=== PATIENT | male | born 1975 | race Caucasian/White ===

== ENCOUNTER 2019-10-22 17:09 | Emergency (ER) | payer BC ==
[2019-10-22 17:20] VITALS: PULSE 84
--- NOTE | 2019-10-22 17:45 | EDM.PDOC ---
ED HPI GENERAL MEDICAL PROBLEM - General Chief Complaint: Chest Pain Stated Complaint: DIARRHEA/HIGH BP/TIGHTNESS IN CHEST Time Seen by Provider: 10/22/19 17:36 Source of Information: Reports: Patient History Limitations: Reports: No Limitations - History of Present Illness INITIAL COMMENTS - FREE TEXT/NARRATIVE: 44-year-old male presents to the ED complaining of some central chest discomfort but he will call it pain or pressure. No heartburn or indigestion. He reports that he has been coughing more continuously or regularly the last for 5 days. He is a smoker. Coughing up some gross sputum he states. He is developed diffuse lower abdominal discomfort associate with diarrhea for about 3 and half to 4 days. This may have occurred after eating out at [employer] on Friday. Stools are large volume yellow fluid. He is gone 3 times so far today. No blood. No nausea or vomiting or heartburn. Feels mildly lightheaded and dizzy. No fever or chills. His blood pressure was found to be markedly elevated at the clinic and he was sent to the ED for evaluation although he has no history of hypertension. Onset: Gradual Onset Date: 10/19/19 (Developed diarrhea afternoon of October 18. Exactly sure when you appreciated increased chest discomfort. Appreciated increased coughing the last 3 days.) Duration: Day(s):, Getting Worse Location: Reports: Chest (Chest discomfort), Abdomen (Intermittent lower abdominal discomfort with diarrhea up to 3 times daily) Quality: Reports: Other Severity: Mild (Chest discomfort but he will not call it a pressure or an ache.) Improves with: Reports: None Worsens with: Reports: None Context: Denies: Activity, Exercise, Lifting, Sick Contact, Trauma, Other Associated Symptoms: Reports: Cough, cough w sputum (Sputum is quite gross and), Loss of Appetite, Malaise (Potatoes not been all aggravate the last couple of days.), Other (Area of the last 3 and half days.). 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) Left Chest Pain Score (Numeric/FACES): 3 - Related Data Allergies Allergy/AdvReac Type Severity Reaction Status Date / Time tetanus toxoid, adsorbed Allergy Severe Fatigue Verified 10/22/19 17:20 Home Meds: Home Meds Dicyclomine [Bentyl] 20 mg PO Q6H PRN #8 tablet 10/22/19 [Rx] amLODIPine Besylate [Norvasc] 5 mg PO DAILY #30 tablet 10/22/19 [Rx] Past Medical History Musculoskeletal History: Reports: Fracture Other Musculoskeletal History: bilateral metatarsels, ankle - Past Surgical History GI Surgical History: Reports: Appendectomy Neurological Surgical History: Reports: Lumbar Spine Musculoskeletal Surgical History: Reports: None Social & Family History - Family History Family Medical History: Noncontributory - Tobacco Use Smoking Status *Q: Current Every Day Smoker Years of Tobacco use: 25 Packs/Tins Daily: 1 - Caffeine Use Caffeine Use: Reports: Coffee, Soda - Alcohol Use Alcohol Use History: Yes - Recreational Drug Use Recreational Drug Use: Yes Drug Use in Last 12 Months: No Recreational Drug Type: Reports: Cocaine, Marijuana/Hashish - Living Situation & Occupation Living situation: Reports: Single Occupation: Employed ED ROS GENERAL - Review of Systems Review Of Systems: See Below Constitutional: Reports: Malaise, Weakness, Fatigue, Decreased Appetite. Denies: Fever, Chills HEENT: Reports: No Symptoms Respiratory: Reports: Wheezing, Cough, Sputum (Says mild intermittent cough with gross tasting sputum.). Denies: Shortness of Breath, Pleuritic Chest Pain, Hemoptysis Cardiovascular: Reports: Chest Pain (Chest discomfort perhaps mild pressure.), Blood Pressure Problem (Pressure elevated at the clinic in 1 of the reason he was sent to the ED for further evaluation.). Denies: Claudication ( He has never been diagnosed with hypertension), Dyspnea on Exertion, Edema, Lightheadedness, Orthopnea, Palpitations Endocrine: Reports: Fatigue GI/Abdominal: Reports: Abdominal Pain (Lower abdominal discomfort), Diarrhea ( mild cramps explosive diarrhea usually yellow watery with high-volume fluid loss the last 3 to 4 days.), Decreased Appetite. Denies: Distension, Flatus, Hematemesis, Hematochezia, Melena, Nausea, Stool Incontinence, Vomiting : Reports: No Symptoms Musculoskeletal: Reports: No Symptoms Skin: Reports: No Symptoms Neurological: Reports: No Symptoms Psychiatric: Reports: No Symptoms Hematologic/Lymphatic: Reports: No Symptoms Immunologic: Reports: No Symptoms ED EXAM, GENERAL - Physical Exam Exam: See Below Exam Limited By: No Limitations General Appearance: Alert, WD/WN, Anxious, Mild Distress, Other (Temperature is 36.5 heart rate was 84 and sinus respiratory is 18 with O2 sats of 95 to 96% BP elevated 149 101.) Eye Exam: Bilateral Eye: Normal Inspection, PERRL Throat/Mouth: Other Head: Atraumatic, Normocephalic Neck: Normal Inspection, Supple, Non-Tender, Full Range of Motion. No: Lymphadenopathy (L), Lymphadenopathy (R) Respiratory/Chest: No Respiratory Distress, Rhonchi (Rhonchi appreciated right midlung anteriorly), Wheezing. No: Lungs Clear, Normal Breath Sounds (Charlene expiratory wheezes throughout all lung shell.), Chest Non-Tender, Crackles, Rales Cardiovascular: Normal Peripheral Pulses, Regular Rate, Rhythm, No Edema, No Gallop, No Murmur, No Rub Peripheral Pulses: 2+: Posterior Tibial (L), Posterior Tibial (R), Dorsalis Pedis (L), Dorsalis Pedis (R), 3+: Carotid (L), Carotid (R) GI/Abdominal: Normal Bowel Sounds, Soft, Non-Tender, No Organomegaly, No Abnormal Bruit, No Mass, Pelvis Stable, Other (Well-healed appendectomy scar right lower quadrant) Back Exam: Normal Inspection, Full Range of Motion. No: CVA Tenderness (L), CVA Tenderness (R) Extremities: Normal Inspection, Normal Range of Motion, Non-Tender Neurological: Alert, Oriented, CN II-XII Intact, Normal Cognition Psychiatric: Anxious Skin Exam: Warm (Steven anxious), Dry, Intact, Normal Color, No Rash EKG INTERPRETATION EKG Date: 10/22/19 Time: 17:31 Rhythm: NSR Rate (Beats/Min): 72 [place]: Normal P-Wave: Enlarged (Mildly enlarged left atrium.) QRS: Other (R wave transition V4. Consider septal hypertrophy pattern) ST-T: Normal QT: Normal EKG Interpretation Comments: Borderline ECG. Course - Vital Signs Last Recorded V/S: Last Vital Signs Temp 36.5 C 10/22/19 17:14 Pulse 84 10/22/19 17:14 Resp 18 10/22/19 17:14 BP 147/102 H 10/22/19 18:52 Pulse Ox 98 06/19/20 17:46 - Orders/Labs/Meds Labs: Laboratory Tests 10/22/19 10/22/19 Range/Units 17:41 17:41 WBC 7.02 (4.23-9.07) K/mm3 RBC 4.96 (4.63-6.08) M/mm3 Hgb 16.5 D (13.7-17.5) gm/dl Hct 48.0 (40.1-51.0) % MCV 96.8 H (79.0-92.2) fl MCH 33.3 H (25.7-32.2) pg MCHC 34.4 (32.2-35.5) g/dl RDW Std Deviation 46.7 H (35.1-43.9) fL Plt Count 208 (163-337) K/mm3 MPV 10.4 (9.4-12.3) fl Neut % (Auto) 59.7 (34.0-67.9) % Lymph % (Auto) 27.6 (21.8-53.1) % [place] % (Auto) 9.5 (5.3-12.2) % Eos % (Auto) 2.3 (0.8-7.0) Baso % (Auto) 0.6 (0.1-1.2) % Neut # (Auto) 4.19 (1.78-5.38) K/mm3 Lymph # (Auto) 1.94 (1.32-3.57) K/mm3 [place] # (Auto) 0.67 (0.30-0.82) K/mm3 Eos # (Auto) 0.16 (0.04-0.54) K/mm3 Baso # (Auto) 0.04 (0.01-0.08) K/mm3 Sodium 141 (136-145) mEq/L Potassium 3.7 (3.5-5.1) mEq/L Chloride 104 (98-107) mEq/L Carbon Dioxide 25 (21-32) mEq/L Anion Gap 15.7 H (5-15) BUN 13 (7-18) mg/dL Creatinine 1.0 (0.7-1.3) mg/dL Est Cr Clr Drug Dosing 101.31 mL/min Estimated GFR (MDRD) > 60 (>60) mL/min BUN/Creatinine Ratio 13.0 L (14-18) Glucose 96 (74-106) mg/dL Calcium 8.9 (8.5-10.1) mg/dL Magnesium 2.0 (1.8-2.4) mg/dl Total Bilirubin 0.3 (0.2-1.0) mg/dL AST 29 (15-37) U/L ALT 36 (16-63) U/L Alkaline Phosphatase 78 (46-116) U/L CK-MB (CK-2) 1.4 (0-3.6) ng/ml Troponin I < 0.017 (0.00-0.056) ng/mL C-Reactive Protein < 0.2 (<1.0) mg/dL Total Protein 6.9 (6.4-8.2) g/dl Albumin 3.5 (3.4-5.0) g/dl Globulin 3.4 gm/dL Albumin/Globulin Ratio 1.0 (1-2) Meds: Medications Discontinued Medications Generic Name Dose Route Start Last Admin Trade Name Freq PRN Reason Stop Dose Admin Albuterol/Ipratropium 3 ml 10/22/19 17:46 10/22/19 18:12 Duoneb 3.0-0.5 Mg/3 Ml NEB 3 ml Q4H PRN Administration Shortness Of Breath/wheezing Enalaprilat 1.25 mg 10/22/19 18:48 10/22/19 18:52 Vasotec Iv IVPUSH 10/22/19 18:49 1.25 mg ONETIME ONE Administration Dextrose/Sodium Chloride 1,000 mls @ 999 mls/hr 10/22/19 18:00 10/22/19 17:55 Dextrose 5%-Normal Saline IV 999 mls/hr ASDIRECTED [facility] Administration - Radiology Interpretation Free Text/Narrative:: 44-year-old male presents the ED with central chest discomfort elevated blood pressure at the clinic today. History of diarrhea loose yellow watery high- volume stool loss up to 3 or 4 times a day for the last 3 to 4 days. Did not eat much the last couple of days. Drink fair amount of alcohol yesterday. Pe rhaps also smoked more than normal. Feels dehydrated. ECG done reveals sinus rhythm at 72/min with no signs of ischemia. He is wheezing bilaterally but he is a smoker. Plan DuoNeb now. Will have 1 view chest x-ray performed. Routine labs. IV will be D5LR at open. - Re-Assessments/Exams Free Text/Narrative Re-Assessment/Exam: 10/22/19 18:21 Labs reveal a normal white count at 7.02. Auto differential shows 80% neutrophils. Hemoglobin is 16.5 with hematocrit of 48.0 indicating mild hemoconcentration. MCV elevated 96.8 I suspect due to underlying alcohol use. Platelet count 208,000. Single view chest x-ray reveals. There is a bronchus in the right perihilar area that appears to have rhonchal cuffing. No signs of pneumonia evident. Pressure is 1 30-1 04. Sats are 96% heart rate 82. 10/22/19 18:37 Chemistry shows a sodium of 141 potassium 3.7. Chloride 104 with a bicarb of 25. Anion gap is slightly elevated at 15.7. BUN is 13 with a creatinine of 1.0. GFR is greater than 60. Glucose is 96. Calcium 8.9 magnesium 2.0 liver function normal. CK-MB fraction 1.4 troponin I less than 0.017. C-reactive protein less than 0.2. Total protein 6.9 albumin fraction 3.5. 10/22/19 18:46 Discussed the findings with the patient. There is no sign of heart related illness. Chest pain can be from coughing so much the last several days. He noticed really no improvement after DuoNeb treatment. Denies is that the sputum has been harder to get up because it is thick and stickier.. Blood pressure remains elevated it is almost always above 146 systolic and 106 diastolic. I am therefore going to give him Vasotec 1.25 mg IV now and plan will be to start him on Norvasc 5 mg once daily. I will give him enough for a month and then have him check with his personal care physician. Be primarily clear fluids for the next day or so Gatorade/Powerade, Jell-O, jam on white bread, soup broth etc. until diarrhea settles down. Avoid all dairy products and no apple or grape juice until stools are formed back up. Departure - Departure Time of Disposition: 18:47 Disposition: Home, Self-Care 01 Reason for Transfer *Q: Other Condition: Fair Clinical Impression: Viral gastroenteritis, Bronchitis, Non-cardiac chest pain, Elevated blood pressure reading Prescriptions: Dicyclomine [Bentyl] 20 mg PO Q6H PRN #8 tablet PRN Reason: Abdominal cramps/diarrhea amLODIPine Besylate [Norvasc] 5 mg PO DAILY #30 tablet Instructions: Viral Gastroenteritis, Adult, [id number], Nonspecific Chest Pain, Adult, [id number], Upper Respiratory Infection, Adult, [id number], Hypertension, Adult, [id number] Referrals: PCP,None [Primary Care Provider] - Forms: ED Department Discharge Additional Instructions: Evaluation in the emergency room today in regards to a combination of symptoms. Noted central chest discomfort off and on for the last 3 to 4 days. Heart tracing was completely normal with no signs of heart related illness. Chest x- ray was normal as well with no signs of pneumonia or enlarged heart. Lab tests also proved completely negative for any heart related illness. White cell count proved to be normal. It therefore appears that the current diarrhea problems are related to viral infection and simply have to run their course. Diet should be clear fluids such as Gatorade/Powerade ideally 6 ounces sipped per hour. Advance to a light diet such as turkey rice/chicken noodle soup etc. Avoid all dairy products and no apple or grape juice until stools are formed back up. Blood pressure readings while in the ED for an hour and a half were all elevated above normal. The top number was persistently higher than 145 with the average being around 150 and the bottom number was always over 100 with the lowest achieved of 101. Normal should be 80-85. You were therefore given a small dose of Vasotec 1.25 mg intravenously in the ED at the time of discharge to bring your blood pressure down. You will need to start a blood pressure medicine called amlodipine or Norvasc 5 mg once daily. Scripts were written for the next 2 months. At some point time such as 2 to 3 weeks you should follow-up with your personal care physician to have your blood pressure checked and make sure that it is coming under good control. Sepsis Event Note (ED) - Evaluation Sepsis Screening Result: No Definite Risk
[2019-10-22] MEDS ORDERED: Albuterol/Ipratropium 3.0-0.5 MG/3 ML Neb Soln NEB PRN (17:46)
[2019-10-22] MEDS ORDERED: Dextrose 5%-0.9% NaCl 1,000 ML IV SCH (18:00)
[2019-10-22] MEDS ORDERED: Enalaprilat 1.25 MG/ML SDV IVPUSH ONE (18:48)
[2019-10-22 18:53] VITALS: BP 147/102
--- NOTE | 2019-10-22 18:53 | CR ---
Chest: PA view of the chest was obtained. Comparison: No prior chest imaging is available. Heart size and mediastinum are normal. Lungs are clear with no acute parenchymal change. Minimal scoliosis is noted within the spine. Impression: 1. Minimal scoliosis. 2. Nothing acute is seen on PA chest x-ray. Diagnostic code #2 Study was dictated in MDT
== END 2019-10-22 19:10 | disposition home or self-care (01) ==
LOC: JD.ED 17:09
DX: J40 Bronchitis, not specified as acute or chronic (principal); A08.4 Viral intestinal infection, unspecified; R03.0 Elevated blood-pressure reading, without diagnosis of hypertension; F17.210 Nicotine dependence, cigarettes, uncomplicated; Z88.8 Allergy status to other drugs, medicaments and biological substances; Z79.899 Other long term (current) drug therapy
CPT/HCPCS: 36415; 71045; 80053; 82553; 83735; 84484; 85025; 86140; 94640; 96361; 96374; 99285; J7042; 93010; 99284; J7620-GY

== ENCOUNTER 2019-11-01 11:25 | Emergency (ER) | payer BC ==
[2019-11-01 11:42] VITALS: BP 135/95; PULSE 73
--- NOTE | 2019-11-01 12:43 | EDM.PDOC ---
ED HPI GENERAL MEDICAL PROBLEM - General Chief Complaint: Neurological Problem Stated Complaint: SHORT TERM MEMORY LOSS Time Seen by Provider: 11/01/19 12:24 Source of Information: Reports: Patient, Family (), RN Notes Reviewed History Limitations: Reports: No Limitations - History of Present Illness INITIAL COMMENTS - FREE TEXT/NARRATIVE: Patient is a 44-year-old male who presents to the ED for evaluation of his intermittent memory loss. Patient notes he has had 2 episodes of this, one roughly 1-1/2 months ago, and another episode today. is present in the room, and states that around 10:10 AM he called her work, and was asked why he was not at work, and wanted to know what he did this morning, and if he went anywhere. He was also asking his 7-year-old daughter the same questions. notes that this happened 1-1/2 months ago, but he was at work, he did not get evaluated at that time for these instances. states that the patient has been furloughed from work, due to coronavirus, for about 1 month now. Patient states that he feels better now, and is aware of what he was doing this morning, and is alert and oriented x3. He was recently seen in this ER roughly 1 week ago for elevated blood pressure readings, and was started on amlodipine. He states that he did not take this medication this morning, but has been faithful in taking it previous to this morning. Patient denies any herbal medications or [id number] medications, he states he felt mildly nauseated at the time, but is not having any nausea/vomiting/diarrhea, or any other sick-like symptoms fever/chills, cough/shortness of breath at the current time. The states she was assessing him when these instances happened, and she notes that he did not have any unilateral weakness, the patient himself states that he feels quite fatigued afterwards, and states all he wanted to do with sleep. He further denies any dizziness or headache. notes that he has been diagnosed with olfactory hallucinations, where he smells things that are not there, he states that after these episodes as well he feels fatigued. Patient notes that the only change in his daily routine, is slight increase in alcohol intake, where he drinks about every other day, this is an increase from about once or twice on the weekends when he was employed. - Related Data Allergies Allergy/AdvReac Type Severity Reaction Status Date / Time tetanus toxoid, adsorbed Allergy Severe Fatigue Verified 10/22/19 17:20 Home Meds: Home Meds Dicyclomine [Bentyl] 20 mg PO Q6H PRN #8 tablet 10/22/19 [Rx] amLODIPine Besylate [Norvasc] 5 mg PO DAILY #30 tablet 10/22/19 [Rx] Past Medical History HEENT History: Reports: Other (See Below) (olfactory hallucinations) Musculoskeletal History: Reports: Fracture Other Musculoskeletal History: bilateral metatarsals, ankle - Past Surgical History GI Surgical History: Reports: Appendectomy Neurological Surgical History: Reports: Lumbar Spine Social & Family History - Family History Family Medical History: Noncontributory - Tobacco Use Smoking Status *Q: Current Every Day Smoker Years of Tobacco use: 25 Packs/Tins Daily: 1 - Caffeine Use Caffeine Use: Reports: Coffee - Recreational Drug Use Recreational Drug Use: No - Living Situation & Occupation Living situation: Reports: Single Occupation: Employed ED ROS GENERAL - Review of Systems Review Of Systems: Comprehensive ROS is negative, except as noted in HPI. - Physical Exam Exam: See Below Exam Limited By: No Limitations General Appearance: Alert, WD/WN, No Apparent Distress Eye Exam: Bilateral Eye: EOMI, Normal Inspection, PERRL Throat/Mouth: Normal Inspection, Normal Lips, Normal Teeth, Normal Gums, Normal Oropharynx, Normal Voice, No Airway Compromise Head Exam: Atraumatic, Normocephalic Neck: Normal Inspection, Supple, Non-Tender, Full Range of Motion Respiratory/Chest: No Respiratory Distress, Lungs Clear, Normal Breath Sounds, No Accessory Muscle Use, Chest Non-Tender Cardiovascular: Normal Peripheral Pulses, Regular Rate, Rhythm, No Murmur GI/Abdominal: Normal Bowel Sounds, Soft, Non-Tender, No Distention, No Mass Neuro Exam (Abbreviated): Alert, Oriented, CN II-XII Intact (grossly), Normal Cognition, No Motor/Sensory Deficits Extremities: Normal Inspection, Normal Capillary Refill Psychiatric: Normal Affect, Normal Mood Skin Exam: Warm, Dry, Intact, Normal Color, No Rash Course - Vital Signs Last Recorded V/S: Last Vital Signs Temp 97.3 F 11/01/19 11:40 Pulse 73 11/01/19 11:40 Resp 20 11/01/19 11:40 BP 135/95 H 11/01/19 11:40 Pulse Ox 94 L 11/01/19 11:40 - Orders/Labs/Meds Labs: Laboratory Tests 11/01/19 11/01/19 Range/Units 12:45 12:45 WBC 6.94 (4.23-9.07) K/mm3 RBC 4.87 (4.63-6.08) M/mm3 Hgb 16.3 (13.7-17.5) gm/dl Hct 47.0 (40.1-51.0) % MCV 96.5 H (79.0-92.2) fl MCH 33.5 H (25.7-32.2) pg MCHC 34.7 (32.2-35.5) g/dl RDW Std Deviation 45.9 H (35.1-43.9) fL Plt Count 190 (163-337) K/mm3 MPV 10.4 (9.4-12.3) fl Neutrophils % (Manual) 78 H (40-60) % Band Neutrophils % 0 (0-10) % Lymphocytes % (Manual) 17 L (20-40) % Atypical Lymphs % 0 % Monocytes % (Manual) 5 (2-10) % Eosinophils % (Manual) 0 L (0.8-7.0) % Basophils % (Manual) 0 L (0.2-1.2) Platelet Estimate Adequate RBC Morph Comment Normal Sodium 138 (136-145) mEq/L Potassium 4.0 (3.5-5.1) mEq/L Chloride 102 (98-107) mEq/L Carbon Dioxide 26 (21-32) mEq/L Anion Gap 14.0 (5-15) BUN 13 (7-18) mg/dL Creatinine 1.0 (0.7-1.3) mg/dL Est Cr Clr Drug Dosing 101.31 mL/min Estimated GFR (MDRD) > 60 (>60) mL/min BUN/Creatinine Ratio 13.0 L (14-18) Glucose 103 (74-106) mg/dL Calcium 9.1 (8.5-10.1) mg/dL Magnesium 1.9 (1.8-2.4) mg/dl Total Bilirubin 0.5 (0.2-1.0) mg/dL AST 22 (15-37) U/L ALT 36 (16-63) U/L Alkaline Phosphatase 72 (46-116) U/L Total Protein 7.0 (6.4-8.2) g/dl Albumin 3.5 (3.4-5.0) g/dl Globulin 3.5 gm/dL Albumin/Globulin Ratio 1.0 (1-2) TSH 3rd Generation 2.043 (0.358-3.74) uIU/mL - Re-Assessments/Exams Free Text/Narrative Re-Assessment/Exam: 11/01/19 12:44 Patient presents to the ED for the evaluation of his ongoing short-term memory loss. Have ordered a head CT without contrast for further evaluation, and basic labs. I did discuss this case with Dr. Cameron regarding his olfactory hallucinations, and he believes that patient could be having temporal lobe epilepsy, that he would require an EEG for diagnosis. If today's work-up is unremarkable, will likely have him follow-up with a neurologist for further management. 11/01/19 13:[address] is done, demonstrates no acute abnormalities, patient's labs are also within normal limits. There is no official etiology of why the patient is h aving amnesia, I will have him follow-up with his regular care provider or establish with a care provider for a neurological consult. 11/01/19 13:39 Did discuss the results with the patient, and have referred him to a family practice provider, he states he will follow-up and do what needs to be done to have further evaluation. Departure - Departure Time of Disposition: 13:40 Disposition: Home, Self-Care 01 Condition: Good Clinical Impression: Amnesia/memory disorder - Discharge Information *PRESCRIPTION DRUG MONITORING PROGRAM REVIEWED*: No *COPY OF PRESCRIPTION DRUG MONITORING REPORT IN PATIENT [place]ANE[place]: No Instructions: Altered Mental Status Referrals: PCP,None [Primary Care Provider] - Forms: ED Department Discharge Additional Instructions: You were evaluated in the ER today regarding your amnesia episodes. You had a CT done at today's visit, and this demonstrated no acute abnormalities, that would be causing these amnesia-like episodes. Your laboratory evaluation also was within normal limits, there is no sign of any acute processes or metabolic disturbances that would be causing these issues. Highly recommend you follow-up with a family practice provider, recommend Dr. Walker, Rosalinda Moraes [facility], or Chet Ritchie [facility], for establishing care and a neurological consult, as you may have an undiagnosed form of epilepsy that we cannot diagnose through the ER visit today. This will require an EEG for further evaluation. Please return to the ER at any time if symptoms change or worsen. Sepsis Event Note (ED) - Evaluation Sepsis Screening Result: No Definite Risk - Focused Exam Vital Signs: Vital Signs Temp Pulse Resp BP Pulse Ox 11/01/19 11:40 97.3 F 73 20 135/95 H 94 L
--- NOTE | 2019-11-01 13:07 | CT ---
Head CT Technique: Multiple axial sections through the brain were obtained. Comparison: Prior MRI brain of 03/29/16 is available Findings: Ventricles along with basal cisterns and sulci over the convexities are within normal limits for the patient's age. No abnormal parenchymal densities are seen. No evidence of intracranial hemorrhage. No midline shift or mass-effect is seen. Bone window settings were reviewed. Mastoid sinuses and visualized paranasal sinuses show nothing acute. No acute calvarial finding is seen. Impression: 1. Nothing acute is appreciated on noncontrast head CT exam. Diagnostic code #1 This report was dictated in MDT
== END 2019-11-01 13:53 | disposition home or self-care (01) ==
LOC: JD.ED 11:25
DX: R41.3 Other amnesia (principal); F17.210 Nicotine dependence, cigarettes, uncomplicated; Z88.7 Allergy status to serum and vaccine; Z79.899 Other long term (current) drug therapy
CPT/HCPCS: 36415; 70450; 70450-26; 80053; 83735; 84443; 85007; 85027; 99285-25

== ENCOUNTER 2020-07-11 12:13 | Emergency (ER) | payer BC ==
[2020-07-11 12:23] VITALS: BP 149/101; PULSE 76
--- NOTE | 2020-07-11 12:59 | EDM.PDOC ---
ED HPI GENERAL MEDICAL PROBLEM - General Chief Complaint: General Stated Complaint: AMBULANCE Time Seen by Provider: 07/11/20 12:42 Source of Information: Reports: Patient, RN Notes Reviewed History Limitations: Reports: No Limitations - History of Present Illness INITIAL COMMENTS - FREE TEXT/NARRATIVE: Patient is a 45-year-old male who presents to the ED via [facility] for the evaluation of a syncopal episode. Patient works at [employer], EMS was reported that the patient was at work, he went outside to have a smoke break, and then the staff that were inside the building looked out the window and found him face down on the ground. Patient was found with bleeding to the bridge of his nose, and a small laceration on the bridge of his nose at this time. Liatmel marily presents to the ER, confused and does not remember the events leading up to the incident or after the incident. Patient notes that he has had issues like this in the past with the amnesia however the syncopal and loss of consciousness episode is new for him. Patient did not appear to be in any distress, and was found to have a half gone cigarette near him, they do not think that the patient was outside for long before someone found him as he was on the ground. 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 He was seen in this ER in October 2019, for some like complaints however he states he did not follow-up with a regular care provider nor did he follow-up with neurology for an EEG. He takes no regular medications. Patient states he is having pain on the bridge of his nose but is not having much pain anywhere else in his body he notes that he has some knee abrasions but those are fine. He remembers that he had an [place] granola bar for breakfast, but not much after that. He is denying any blurred vision or double vision, any dizziness or lightheadedness. He has had no fevers or chills, cough or shortness of breath prior to the incident. Face/Facial Pain Score (Numeric/FACES): 4 - Related Data Allergies Allergy/AdvReac Type Severity Reaction Status Date / Time tetanus toxoid, adsorbed Allergy Severe Fatigue Verified 07/11/20 12:23 Home Meds: Home Meds levETIRAcetam [Keppra] 500 mg PO BID #60 tab 07/11/20 [Rx] Past Medical History HEENT History: Reports: Other (See Below) (olfactory hallucinations) Cardiovascular History: Reports: Hypertension Musculoskeletal History: Reports: Fracture Other Musculoskeletal History: bilateral metatarsals, ankle - Past Surgical History GI Surgical History: Reports: Appendectomy Neurological Surgical History: Reports: Lumbar Spine Social & Family History - Family History Family Medical History: No Pertinent Family History - Tobacco Use Tobacco Use Status *Q: Current Every Day Tobacco User Years of Tobacco use: 26 Packs/Tins Daily: 1 - Caffeine Use Caffeine Use: Reports: Coffee, Soda, Tea - Recreational Drug Use Recreational Drug Use: No - Living Situation & Occupation Living situation: Reports: Single Occupation: Employed ED ROS GENERAL - Review of Systems Review Of Systems: Comprehensive ROS is negative, except as noted in HPI. ED EXAM, GENERAL - Physical Exam Exam: See Below Exam Limited By: No Limitations General Appearance: Alert, WD/WN, No Apparent Distress Eye Exam: Bilateral Eye: EOMI, Normal Inspection, PERRL Ears: Normal External Exam, Normal Canal, Hearing Grossly Normal, Normal TMs Nose: Normal Inspection, Other (dried blood to bilateral nares, no active bleeding or hematomas identified) Throat/Mouth: Normal Inspection, Normal Lips, Normal Teeth, Normal Gums, Normal Oropharynx, Normal Voice, No Airway Compromise Head: Normocephalic, Facial Swelling (to the bridge of his nose with tenderness in this area as well) Neck: Normal Inspection, Supple, Non-Tender, Full Range of Motion Respiratory/Chest: No Respiratory Distress, Lungs Clear, Normal Breath Sounds, No Accessory Muscle Use, Chest Non-Tender Cardiovascular: Normal Peripheral Pulses, Regular Rate, Rhythm, No Edema Peripheral Pulses: 2+: Radial (L), Radial (R) Extremities: Normal Inspection, Normal Range of Motion, Normal Capillary Refill Neurological: Alert, Oriented, No Motor/Sensory Deficits, Memory Loss Recent Events (states that he remembers eating a granola bar for breakfast; but not much after this.) Psychiatric: Normal Affect, Normal Mood Skin Exam: Warm, Dry, Normal Color, No Rash, Wound/Incision (small superficial laceration to bridge of nose; not actively bleeding. Abrasions to bilateral knees.) Course - Vital Signs Last Recorded V/S: Last Vital Signs Temp 97.6 F 07/11/20 12:17 Pulse 76 07/11/20 12:17 Resp 16 07/11/20 12:17 BP 149/101 H 07/11/20 12:17 Pulse Ox 97 07/11/20 12:17 - Orders/Labs/Meds Labs: Laboratory Tests 07/11/20 07/11/20 Range/Units 13:05 13:05 WBC 6.16 (4.23-9.07) K/mm3 RBC 4.49 L (4.63-6.08) M/mm3 Hgb 14.7 D (13.7-17.5) gm/dl Hct 43.7 (40.1-51.0) % MCV 97.3 H (79.0-92.2) fl MCH 32.7 H (25.7-32.2) pg MCHC 33.6 (32.2-35.5) g/dl RDW Std Deviation 45.2 H (35.1-43.9) fL Plt Count 189 (163-337) K/mm3 MPV 10.2 (9.4-12.3) fl Neut % (Auto) 61.7 (34.0-67.9) % Lymph % (Auto) 26.0 (21.8-53.1) % [place] % (Auto) 9.1 (5.3-12.2) % Eos % (Auto) 2.4 (0.8-7.0) Baso % (Auto) 0.6 (0.1-1.2) % Neut # (Auto) 3.80 (1.78-5.38) K/mm3 Lymph # (Auto) 1.60 (1.32-3.57) K/mm3 [place] # (Auto) 0.56 (0.30-0.82) K/mm3 Eos # (Auto) 0.15 (0.04-0.54) K/mm3 Baso # (Auto) 0.04 (0.01-0.08) K/mm3 Sodium 140 (136-145) mEq/L Potassium 4.3 (3.5-5.1) mEq/L Chloride 104 (98-107) mEq/L Carbon Dioxide 28 (21-32) mEq/L Anion Gap 12.3 (5-15) BUN 19 H (7-18) mg/dL Creatinine 0.9 (0.7-1.3) mg/dL Est Cr Clr Drug Dosing 111.37 mL/min Estimated GFR (MDRD) > 60 (>60) mL/min BUN/Creatinine Ratio 21.1 H (14-18) Glucose 83 (74-106) mg/dL Calcium 8.7 (8.5-10.1) mg/dL Magnesium 1.8 (1.8-2.4) mg/dl Total Bilirubin 0.4 (0.2-1.0) mg/dL AST 19 (15-37) U/L ALT 32 (16-63) U/L Alkaline Phosphatase 65 (46-116) U/L Total Protein 6.8 (6.4-8.2) g/dl Albumin 3.5 (3.4-5.0) g/dl Globulin 3.3 gm/dL Albumin/Globulin Ratio 1.1 (1-2) - Re-Assessments/Exams Free Text/Narrative Re-Assessment/Exam: 07/11/20 12:59 Patient presents to the ED for his syncopal episode and facial injuries with remote memory loss. Patient notes that the memory loss he has exhibited before however the syncopal episode and the loss of consciousness is new for him, it is unclear how long he was out. We will move forward with a head CT without contrast, maxillofacial CT without contrast for evaluation of his injuries as the bridge of his nose is quite tender. Likely he fell forward onto his face causing the injuries. We will get some baseline labs as well to see if there is any other metabolic reason for what could have caused today's issues. Due to him not following up with a regular provider for his ongoing issues I will make an appointment to follow-up with a clinic provider in our facility, so they can facilitate a neurological referral. 07/11/20 14:18 Laboratory evaluation demonstrates no focal abnormalities, the patient did have his head CT and maxillofacial CT performed, and the maxillofacial CT does demonstrate a small nasal bone fracture which would be consistent with his acute injuries. Head CT was without acute abnormality. I did go ahead and contact neurology at [facility] in [place], and I was able to talk with Dr. Cal Wagner, and he would agree that there is a possibility of seizure-like activity, and he is noting the patient needs to have an MRI of his brain and EEG and further work-up. He recommends doing a 1 g Keppra dosing load in the ER, and continuing 500 mg twice daily and follow-up with any neurologist the gentleman can see. I did go ahead and schedule him a follow-up appoint with Chet Ashley, for this on July 14, at 10:30 AM check-in. I will give the gentleman time off from work until he can obtain this appointment and get his neurological referral. I will make him aware of his nasal bone fracture, and the medications that he needs to take for the suspected seizures. I will get him some pain meds if he feels he should need them for the nasal bone fracture. Departure - Departure Time of Disposition: 14:27 Disposition: Home, Self-Care 01 Condition: Good Clinical Impression: Episode of syncope Qualifiers: Syncope type: unspecified Qualified Code(s): R55 - Syncope and collapse Nasal bone fracture Qualifiers: Encounter type: initial encounter Fracture type: closed Qualified Code(s): S02.2XXA - Fracture of nasal bones, initial encounter for closed fracture - Discharge Information *PRESCRIPTION DRUG MONITORING PROGRAM REVIEWED*: No *COPY OF PRESCRIPTION DRUG MONITORING REPORT IN PATIENT SHANEKA: No Prescriptions: levETIRAcetam [Keppra] 500 mg PO BID #60 tab Instructions: Syncope, [id number], Nasal Fracture, [id number] Referrals: De Ritchie NP [Nurse Practitioner] - 07/14/20 10:30 am Forms: ED Department Discharge, ED Return to Work/School Form Additional Instructions: You were seen in this ER for your syncopal episode, and ongoing neurological issues. Head CT was taken at today's visit and again demonstrates no focal abnormalities like a tumor or other acute issues that would be the cause of your syncopal episode/ongoing neurological issues. Your maxillofacial CT demonstrated that you had a nasal bone fracture this is nondisplaced and should heal well. You may use Tylenol or ibuprofen for pain management for this. You may use ice pack to the area to provide some relief from swelling. Your case was discussed with neurology at [facility] in [place], and they were quite concerned for the possibility of ongoing seizure activity. You have been started on Keppra, first dose in the ER was given, and you will need to continue 500 mg twice daily until neurology tells you otherwise. This prescription was sent to the [place] pharmacy located in the [facility]. An appointment has been made on your behalf with Chet Ritchie, one of our midlevel practitioners in our clinic for this follow-up visit to get a referral to neurology started. This appointment is July 14 at 10:30 AM check-in time. You are not to be driving until neurology can clear you for further seizure-like activity. Please return to the ER at any time if symptoms change or worsen. Sepsis Event Note (ED) - Evaluation Sepsis Screening Result: No Definite Risk - Focused Exam Vital Signs: Vital Signs Temp Pulse Resp BP Pulse Ox 07/11/20 12:17 97.6 F 76 16 149/101 H 97
--- NOTE | 2020-07-11 13:47 | CT ---
Head CT Technique: Multiple axial sections through the brain were obtained. Intravenous contrast was not utilized. Comparison: Prior MRI brain of 03/29/[address] study of 11/01/19. Findings: Ventricles along with basal cisterns and sulci over the convexities appear within normal limits for the patient's age. No abnormal parenchymal densities are seen. No evidence of intracranial hemorrhage. No midline shift or mass-effect is seen. Bone window settings were reviewed. Visualized mastoid and paranasal sinuses show nothing acute. No acute calvarial abnormality is appreciated. Impression: 1. Nothing acute is appreciated on noncontrast head CT exam. Diagnostic code #1
--- NOTE | 2020-07-11 13:48 | CT ---
CT maxillofacial structures: Multiple axial sections through the face were obtained. No intravenous contrast was utilized. Reconstructed coronal and sagittal images were obtained. Findings: Small fracture is identified within the nasal bone. Please correlate if this is acute or old. Retention cyst is noted within the inferior right maxillary sinus measuring 1.4 cm. Other portions of the paranasal sinuses are clear. There is a darian bullosa within the middle nasal turbinate on the left side. Minimal nasal septal deviation is seen. There is loss of height of several of the teeth, please correlate if this is chronic or represents acute erosions. No acute fracture or other abnormality is otherwise appreciated. Impression: 1. Small nasal bone fracture. Please correlate if this is acute or old. 2. Retention cyst within the right maxillary sinus. Other chronic sinus findings as noted above. 3. Loss of tooth height either due to chronic change if patient has no acute erosive abnormality. Diagnostic code #3
[2020-07-11] MEDS ORDERED: levETIRAcetam 500 MG Tab PO ONE (14:13)
== END 2020-07-11 14:51 | disposition home or self-care (01) ==
LOC: JD.ED 12:13
DX: R55 Syncope and collapse (principal); S02.2XXA Fracture of nasal bones, initial encounter for closed fracture; S80.211A Abrasion, right knee, initial encounter; S80.212A Abrasion, left knee, initial encounter; I10 Essential (primary) hypertension; F17.210 Nicotine dependence, cigarettes, uncomplicated; Z88.7 Allergy status to serum and vaccine; W19.XXXA Unspecified fall, initial encounter; Y92.89 Other specified places as the place of occurrence of the external cause; Y99.0 Civilian activity done for income or pay
CPT/HCPCS: 36415; 70450; 70486; 80053; 83735; 85025; 99284; A9270

== ENCOUNTER 2021-01-05 10:12 | Emergency (ER) | payer BC ==
[2021-01-05 10:23] VITALS: BP 157/93; PULSE 71
[2021-01-05] MEDS ORDERED: Sodium Chloride 0.9% 10 ML Syringe FLUSH PRN (10:37)
[2021-01-05] MEDS ORDERED: Albuterol/Ipratropium 3.0-0.5 MG/3 ML Neb Soln NEB ONE (10:40)
--- NOTE | 2021-01-05 11:04 | CR ---
Chest: Portable view of the chest was obtained. Comparison: Prior chest x-ray of 07/14/20. Heart size and mediastinum are within normal limits. Lungs are clear with no acute parenchymal change. Minimal scoliosis is noted. Impression: 1. Nothing acute is seen on portable chest x-ray. Diagnostic code #2
--- NOTE | 2021-01-05 11:42 | CT ---
Head CT Technique: Multiple axial sections through the brain were obtained. Intravenous contrast was not utilized. Reconstructed coronal and sagittal images were obtained. Comparison: Prior head CT study of 07/11/20. Findings: Ventricles along with basal cisterns and sulci over the convexities are within normal limits for the patient's age. No abnormal parenchymal densities are seen. No evidence of intracranial hemorrhage is seen. No midline shift or mass-effect is seen. Bone window settings were reviewed which shows the visualized mastoid sinuses and paranasal sinuses to appear clear. No acute calvarial abnormality is appreciated. Impression: 1. No acute intracranial abnormality is appreciated. 2. No change is seen from previous head CT study. Diagnostic code #1
--- NOTE | 2021-01-05 13:10 | EDM.PDOC ---
ED HPI GENERAL MEDICAL PROBLEM - General Chief Complaint: Syncope Stated Complaint: [facility] Time Seen by Provider: 01/05/21 10:18 Source of Information: Reports: Patient, EMS History Limitations: Reports: No Limitations - History of Present Illness INITIAL COMMENTS - FREE TEXT/NARRATIVE: The patient presents by [facility] for syncope. The patient was at wo rk at [employer] and a co-worker found him crawling in the floor and confused. He was alert and orientated when I saw him. He does not remember much of the day. It is coming back. He has a history of seizures. He said the seizures consisted of him smelling an odd smell and then he would stair off into space. He never had the generalized tonic clonic seizure. He was on m edications for it. He barely took them and the episodes happened rarely. He has no headache, fever, chills, cough, chest pain, shortness of breath, abdominal pain, nausea or vomiting. He did not bite his tongue and he was not incontinent of urine. Onset: Sudden Duration: Minutes: Severity: Moderate Improves with: Reports: None Worsens with: Reports: None Associated Symptoms: Reports: No Other Symptoms - Related Data Allergies Allergy/AdvReac Type Severity Reaction Status Date / Time tetanus toxoid, adsorbed AdvReac Mild Fatigue Verified 01/05/21 10:23 Home Meds: Home Meds . [No Known Home Meds] 01/05/21 [History] Past Medical History HEENT History: Reports: Other (See Below) (olfactory hallucinations) Cardiovascular History: Reports: Hypertension Musculoskeletal History: Reports: Fracture Other Musculoskeletal History: bilateral metatarsals, ankle Neurological History: Reports: Seizure - Infectious Disease History Infectious Disease History: Reports: Novel Coronavirus - Past Surgical History GI Surgical History: Reports: Appendectomy Neurological Surgical History: Reports: Lumbar Spine Social & Family History - Family History Family Medical History: No Pertinent Family History - Tobacco Use Tobacco Use Status *Q: Current Every Day Tobacco User Years of Tobacco use: 25 Packs/Tins Daily: 1 - Caffeine Use Caffeine Use: Reports: Coffee - Recreational Drug Use Recreational Drug Use: No - Living Situation & Occupation Living situation: Reports: Single Occupation: Employed ED ROS GENERAL - Review of Systems Review Of Systems: See Below Constitutional: Reports: No Symptoms HEENT: Reports: No Symptoms Respiratory: Reports: No Symptoms Cardiovascular: Reports: No Symptoms Endocrine: Reports: No Symptoms GI/Abdominal: Reports: No Symptoms : Reports: No Symptoms Musculoskeletal: Reports: No Symptoms - Physical Exam Exam: See Below Exam Limited By: No Limitations General Appearance: Alert, No Apparent Distress Ears: Normal External Exam Nose: Normal Inspection Head Exam: Atraumatic, Normocephalic Neck: Normal Inspection Respiratory/Chest: No Respiratory Distress, Wheezing (moderate) Cardiovascular: Regular Rate, Rhythm, No Edema, No Murmur GI/Abdominal: Soft, Non-Tender, No Organomegaly, No Mass Neuro Exam (Abbreviated): Alert, Oriented, No Motor/Sensory Deficits #1 Interpretation EKG Date: 01/05/21 Time: 11:02 Rhythm: NSR Rate (Beats/Min): 74 [place]: Normal P-Wave: Present QRS: Normal ST-T: Normal QT: Normal Course - Vital Signs Last Recorded V/S: Last Vital Signs Temp 97.2 F 01/05/21 10:21 Pulse 71 01/05/21 10:21 Resp 16 01/05/21 10:21 BP 157/93 H 01/05/21 10:21 Pulse Ox 97 01/05/21 10:41 - Orders/Labs/Meds Orders: Active Orders 24 hr Category Date Time Status Cardiac Monitoring [RC] . DIRECTED Care 01/05/21 10:37 Active Peripheral IV Care [RC] . DIRECTED Care 01/05/21 10:40 Active RT Aerosol Therapy [RC] ASDIRECTED Care 01/05/21 10:41 Active Sodium Chloride 0.9% [Saline Flush] Med 01/05/21 10:37 Active 10 ml FLUSH ASDIRECTED PRN Peripheral IV Insertion Adult [OM.PC] Stat Oth 01/05/21 10:37 Ordered Medication Orders Sodium Chloride (Sodium Chloride 0.9% 10 Ml Syringe) 10 ml FLUSH ASDIRECTED PRN PRN Reason: Keep Vein Open Last Admin: 01/05/21 12:32 Dose: 10 ml Documented by: MARY Labs: Laboratory Tests 01/05/21 01/05/21 01/05/21 Range/Units 11:01 11:01 11:01 WBC 5.15 (4.23-9.07) K/mm3 RBC 4.27 L (4.63-6.08) M/mm3 Hgb 14.6 (13.7-17.5) gm/dl Hct 42.3 (40.1-51.0) % MCV 99.1 H (79.0-92.2) fl MCH 34.2 H (25.7-32.2) pg MCHC 34.5 (32.2-35.5) g/dl RDW Std Deviation 44.8 H (35.1-43.9) fL Plt Count 169 (163-337) K/mm3 MPV 10.3 (9.4-12.3) fl Neut % (Auto) 65.6 (34.0-67.9) % Lymph % (Auto) 23.5 (21.8-53.1) % [place] % (Auto) 8.2 (5.3-12.2) % Eos % (Auto) 2.1 (0.8-7.0) Baso % (Auto) 0.6 (0.1-1.2) % Neut # (Auto) 3.38 (1.78-5.38) K/mm3 Lymph # (Auto) 1.21 L (1.32-3.57) K/mm3 [place] # (Auto) 0.42 (0.30-0.82) K/mm3 Eos # (Auto) 0.11 (0.04-0.54) K/mm3 Baso # (Auto) 0.03 (0.01-0.08) K/mm3 D-Dimer, Quantitative 0.23 (0.19-0.50) mg/L Sodium 142 (136-145) mEq/L Potassium 4.1 (3.5-5.1) mEq/L Chloride 107 (98-107) mEq/L Carbon Dioxide 27 (21-32) mEq/L Anion Gap 12.1 (5-15) BUN 14 (7-18) mg/dL Creatinine 0.9 (0.7-1.3) mg/dL Est Cr Clr Drug Dosing 110.67 mL/min Estimated GFR (MDRD) > 60 (>60) mL/min BUN/Creatinine Ratio 15.6 (14-18) Glucose 97 (70-99) mg/dL Calcium 8.1 L (8.5-10.1) mg/dL Magnesium 1.9 (1.8-2.4) mg/dL Total Bilirubin 0.3 (0.2-1.0) mg/dL AST 16 (15-37) U/L ALT 21 (16-63) U/L Alkaline Phosphatase 67 (46-116) U/L Troponin I < 0.017 (0.00-0.056) ng/mL Total Protein 6.3 L (6.4-8.2) g/dl Albumin 3.3 L (3.4-5.0) g/dl Globulin 3.0 gm/dL Albumin/Globulin Ratio 1.1 (1-2) Ethyl Alcohol 0.00 (0.00) gm% Meds: Medications Generic Name Dose Route Start Last Admin Trade Name Freq PRN Reason Stop Dose Admin Sodium Chloride 10 ml 01/05/21 10:37 01/05/21 12:32 Sodium Chloride 0.9% 10 Ml Syringe FLUSH 10 ml ASDIRECTED PRN Administration Keep Vein Open Discontinued Medications Generic Name Dose Route Start Last Admin Trade Name Freq PRN Reason Stop Dose Admin Albuterol/Ipratropium 3 ml 01/05/21 10:40 01/05/21 11:00 Albuterol/Ipratropium 3.0-0.5 Mg/3 Ml Neb Soln NEB 01/05/21 10:41 3 ml ONETIME ONE Administration - Re-Assessments/Exams Free Text/Narrative Re-Assessment/Exam: 01/05/21 13:22 I ordered an IV saline lock, EKG, CXR, CT of his head, and labs. I also ordered a duoneb. He was wheezing. His EKG shows a NSR with no acute changes. The CT of his head shows no acute intracranial abnormalit. His CXR looks good. His CBC and CMP look good. His D-dimer is negative. His troponin looks good. His ETOH is 0. He feels better. We discussed that this could be a seizure but I cannot confirm this. This could have also been a syncopal episode. I will have him talk to his doctor. Departure - Departure Time of Disposition: 13:25 Disposition: Home, Self-Care 01 Condition: Good Clinical Impression: Confusion Syncope Qualifiers: Syncope type: unspecified Qualified Code(s): R55 - Syncope and collapse - Discharge Information *PRESCRIPTION DRUG MONITORING PROGRAM REVIEWED*: Not Applicable *COPY OF PRESCRIPTION DRUG MONITORING REPORT IN PATIENT SHANEKA: Not Applicable Referrals: PCP,None [Primary Care Provider] - Forms: ED Department Discharge Additional Instructions: Follow up with your doctor within a week. Please return if you are worse. Sepsis Event Note (ED) - Evaluation Sepsis Screening Result: No Definite Risk - Focused Exam Vital Signs: Vital Signs Temp Pulse Resp BP Pulse Ox Pulse Ox 01/05/21 10:41 97 01/05/21 10:21 97.2 F 71 16 157/93 H 94 L - My Orders Last 24 Hours: My Active Orders 01/05/21 10:37 Cardiac Monitoring [RC] . DIRECTED Sodium Chloride 0.9% [Saline Flush] 10 ml FLUSH ASDIRECTED PRN Peripheral IV Insertion Adult [OM.PC] Stat 01/05/21 10:40 Peripheral IV Care [RC] . DIRECTED 01/05/21 10:41 RT Aerosol Therapy [RC] ASDIRECTED - Assessment/Plan Last 24 Hours: My Active Orders 01/05/21 10:37 Cardiac Monitoring [RC] . DIRECTED Sodium Chloride 0.9% [Saline Flush] 10 ml FLUSH ASDIRECTED PRN Peripheral IV Insertion Adult [OM.PC] Stat 01/05/21 10:40 Peripheral IV Care [RC] . DIRECTED 01/05/21 10:41 RT Aerosol Therapy [RC] ASDIRECTED
== END 2021-01-05 13:31 | disposition home or self-care (01) ==
LOC: JD.ED 10:12
DX: R55 Syncope and collapse (principal); R41.0 Disorientation, unspecified; I10 Essential (primary) hypertension; Z88.7 Allergy status to serum and vaccine; Z72.0 Tobacco use
CPT/HCPCS: 36415; 70450; 70450-26; 71045; 71045-26; 80053; 80307; 83735; 84484; 85025; 85379; 93005; 93010; 94640; 99284; 99285-25; J7620-GY